=== PATIENT | female | born 2000 | race Caucasian/White ===

== ENCOUNTER 2025-02-04 10:06 | Outpatient (AMB) | payer MEDICAID, SELFPAY ==
[2025-02-04 10:25] VITALS: BP 114/73; PULSE 107; RESP 18; TEMP 36.2; O2SAT 98; BMI 49.1
--- NOTE | 2025-02-04 10:25 | OBCLNT_ITS ---
Vital Signs 02/04/25 10:25 Height 1.63 m Height Method Stated Weight 129.841 kg Weight Measurement Method Standing Scale BMI 49.1 BP 114/73 Blood Pressure Source Automatic Cuff Blood Pressure Location Left Upper Arm Position Sitting Respiration 18 Pulse 107 H Pulse Source Monitor Temp 97.2 F Temp Source Oral Pulse Oximetry (%) 98 Oxygen Delivery Method Room Air Allergies/Home Meds Allergies & Medications Allergies No Known Allergies Allergy (Verified 02/04/25 10:26) Medication Reconciliation No Known Home Medications 02/04/25 [History Confirmed 02/04/25] Intake Visit Data Collection New Patient or Established: Established Patient (seen at [facility] within 3 years) Reason for Visit:: OBC Seen by Clinical Staff ONLY (RN/MA): No Windows Server Support Technician Required: No Do You Feel Safe at Home: Yes Authorities Contacted: N/A PCP or OBGYN visit in last 3 months: Yes Hx Now: Yes Are you currently on any form of Control: No Pain Present Currently: No Pain Scale Used: Rodriguez-Butler/Numerical Pain scale:: 0 Smoking Status Smoking Status: Never smoker Immunizations Flu Vaccine in the Last 12 Months: No Flu Vaccine Exclusion Criteria: No Exclusion Criteria Questionnaires Covid-19 Vaccine Questionnaire Has patient been vacinated for Covid-19 Have you been vacinated for Covid-19: No PHQ-9 PHQ-2 Over the last 2 weeks, how often have you been bothered by any of the following problems? 1. Little interest or pleasure in doing things: not at all 2. Feeling down, depressed, or hopeless: not at all Total score: 0 PHQ-9 3. Trouble falling or staying asleep, or sleeping too much: Not at all 4. Feeling tired or having little energy: Not at all 5. Poor appetite or overeating: Not at all 6. Feeling bad about yourself - or that you are a failure or have let yourself or your family down: Not at all 7. Trouble concentrating on things, such as reading the newspaper or watching television: Not at all 8. Moving or speaking so slowly that other people could have noticed? - Or the opposite - being so fidgety or restless that you have been moving around a lot more than usual: not at all 9. Thoughts that you would be better off or of hurting yourself in some way: Not at all Total score: 0 If you checked off any problems, how difficult have these problems made it for you to do your work, take care of things at home, or get along with other people?: not difficult at all Source: Developed by Drs. Fernando Gr, Shelby Hernández, Hubert Linton and colleagues, with an educational more from [employer] ([employer]). Depression screen completed yes Social History Living Situation History Marital Status: Single Lives With: Family Housing: House Tobacco History Smoking Status: Never smoker Second Hand Smoke Exposure: No Domestic Abuse History Do You Feel Safe at Home: Yes OB Initial Visit OB Flowsheet OB Flowsheet Initial Weight: Not Recorded Date -?-?-?-?-?-?-?-?-?-?-?-?- EGA Weight BP Alb Glu CTX Pres Fundal ht FHR Mov Dilation Station Effacement Hx Notes Visit Note 02/04/25 -?-?-?-?-?-?-?-?-?-?-?-?- 27w 5d 129.841 kg 114/73 absent cephalic 28 14 8 active Menstrual History Menstrual reliability: definite Flow: normal Menstrual regularity: regular Monthly: Yes Age at menarche: 13 On control pills at conception: No OB History : 1 # of Living Children: 0 Infection History & Risk Evaluation History of STDs: none HIV risk evaluation: low risk Hepatitis B risk evaluation: low risk Patient or partner has history of Genital Herpes: No Varicella/chicken pox status: immunized Genetic Screening & History Genetic Screening/Teratology Counseling - Includes patient, baby's father, or anyone in either family with: 1. Patient's age 35 years or older as of estimated date of delivery: No 2. Thalassemia (Estonian, Surinamese, Mediterranean, or Background); MCV less than 80: No 3. Neural Tube Defect (Meningomyelocele, Spina Bifida, or Anencephaly): No 4. Congenital Heart Defect: No 5. Down Syndrome: No 6. Yosef-Sachs (Ashkenazi Sabianism, Cajun, [place]): No 7. Ritu Disease (Ashkenazi Sabianism): No 8. Familial Dysautonomia (Ashkenazi Sabianism): No 9. Sickle Cell Disease or Trait (): No 10. Hemophilia or other blood disorders: No 11. Muscular Dystrophy: No 12. Cystic Fibrosis: No 13. Orient's Chorea: No 14. Mental Retardation/Autism: Yes 15. Other inherited genetic or chromosomal disorder: No 16. Maternal Metabolic Disorder (EG,TYPE 1 Diabetes, PKU): Yes 17. Patient or baby's father had a child with defects not listed above: No 18. Recurrent loss or a stillbirth: No 19. Medications (including supplements, vitamins, herbs or otc drugs)/illicit/recreational drugs/alcohol since last menstrual period: No 20. Any other: No Infection History 1. Live with someone with TB or exposed to TB: No 2. Rash or viral illness since last menstrual period: No 3. Hepatitis B,C: No Other (see comments) Source: [employer] Office Procedures OBC Clinic LOC & Office Proc's Nursing/Assessment Patient Status: Initial/New Patient OB Clinic Nursing Assessment: Medication Reconciliation, Update PMH in EMR and Vital Signs OB Clinic Coordination of Care: Consent,records obtained, informed consent, Education Simp Pt/Fam, Lab and Imaging orders, Results/Orders obtained and Staff clarify orders Special Needs: Heart tones New Patient Charge New Patient Point Assignment: [id number] New Patient Point Charge: ASSISTANT OPERATIONS MANAGER Level 3 (1454-9360) Assessment & Plan Diagnosis / Problem List (1) : Status: Acute Qualifiers: Weeks of gestation: 27 weeks Qualified Code(s): Z3A.27 - 27 weeks gestation of Plan: 25 years at 27.5 weeks iup with h/o bipolar disorder and also being evaluated for autism diagnosed with ADHD , she is seeing a psychiatrist will review medications next visit (2) Asthma affecting in second trimester: Status: Acute (3) Mood disorder: Status: Acute Plan: seeing a psychiatrist and has been evaluated as having ADHD and also evaluated for autism / review meds next visit Plan RPR and CBC and One hour GTT S appropriate for Dates and follow up in 2 to 3 weeks Additional Plan Follow Up: 2 Weeks
== END 2025-02-04 11:01 | disposition home or self-care (01) ==
PROVIDERS: Supervising Provider Obstetrics & Gynecology; Visit Provider Obstetrics & Gynecology
DX: O09.892 Supervision of other high risk pregnancies, second trimester (principal); O99.512 Diseases of the respiratory system complicating pregnancy, second trimester; J45.909 Unspecified asthma, uncomplicated; O99.342 Other mental disorders complicating pregnancy, second trimester; F31.9 Bipolar disorder, unspecified; F90.9 Attention-deficit hyperactivity disorder, unspecified type; Z3A.27 27 weeks gestation of pregnancy
CPT/HCPCS: 99203; G0463

== ENCOUNTER 2025-02-13 00:28 | Observation (INO) | payer MEDICAID, SELFPAY ==
[2025-02-13 00:35] VITALS: BP 131/71; PULSE 93; RESP 16; RESP 98; TEMP 36.9; BMI 49.3
[2025-02-13 00:45] VITALS: BP 131/71; PULSE 93; PULSE 96; O2SAT 98
[2025-02-13 00:50] VITALS: PULSE 94; O2SAT 99
[2025-02-13 00:55] VITALS: PULSE 102; O2SAT 99
[2025-02-13 01:02] VITALS: BP 128/71; PULSE 87
[2025-02-13 01:17] VITALS: BP 121/71; PULSE 85
== END 2025-02-13 01:55 | disposition home or self-care (01) ==
PROVIDERS: Admitting Provider Obstetrics & Gynecology; Visit Provider Obstetrics & Gynecology
DX: O21.2 Late vomiting of pregnancy (principal); O99.891 Other specified diseases and conditions complicating pregnancy; M54.50 Low back pain, unspecified; O26.893 Other specified pregnancy related conditions, third trimester; R10.9 Unspecified abdominal pain; Z3A.29 29 weeks gestation of pregnancy
CPT/HCPCS: 59025; 59899

== ENCOUNTER 2025-02-13 12:31 | Emergency (ER) | payer MEDICAID, SELFPAY ==
[2025-02-13 12:32] VITALS: BMI 31.2
[2025-02-13 13:20] VITALS: BP 128/80; PULSE 90; RESP 20; TEMP 37; O2SAT 98
--- NOTE | 2025-02-13 13:24 | XR_ITS ---
Examination: Abdomen sonogram, Limited Date and time of exam: February 13, 2025, 1433 hours INDICATIONS: Generalized abdominal pain and vomiting this week Technique: Real-time saavedra scale transabdominal sonographic images of the upper abdomen obtained. Findings: Gallbladder sludge, tiny gallstones Gallbladder wall 0.3 cm Common bile duct 0.4 cm Pancreatic head 2.9 cm Liver 14.4 cm no liver lesions Normal hepatopetal portal venous flow Patent IVC IMPRESSION: Gallbladder sludge, suspicious for tiny gallstones, negative for cholecystitis
--- NOTE | 2025-02-13 13:24 | EKG_ITS ---
[facility] Test Date: 2025-02-13 Pat Name: DAVIDE GUPTA Department: Room: - Gender: Female Banking Analyst: : 2000 Requested By: Eros Thayer (RIP) Order Number: [id number] Reading MD: Eros Thayer (ELECTRONIC INTEGRATED SYSTEMS MECHANIC) Measurements Intervals [place] Rate: 96 P: 38 AR: 134 QRS: -3 QRSD: 79 T: 15 QT: 325 QTc: 411 Interpretive Statements SINUS RHYTHM MINIMAL VOLTAGE CRITERIA FOR LVH, CONSIDER NORMAL VARIANT [MEETS CRITERIA IN ONE OF: R(aVL), S(V1), R(V5), R(V5/V6)+S(V1)] No previous ECG available for comparison /store/S0/[id number]/ecg/[id number].pdf
--- NOTE | 2025-02-13 13:24 | PD.EDRME ---
Rapid Medical Screening Exam RME Arrival date/time: 02/13/25 12:31 25-year-old female presents to the emergency department today for complaints of upper abdominal pain and chest pain ongoing since yesterday patient is approximate 29 weeks patient was cleared by OB Chief Complaint: Abdominal Pain Time Seen by Provider: 02/13/25 12:50 Vital signs: Vital Signs Temperature 98.6 F 02/13/25 13:20 Pulse Rate 90 02/13/25 13:20 Respiratory Rate 20 02/13/25 13:20 Blood Pressure 128/80 02/13/25 13:20 Pulse Oximetry (%) 98 02/13/25 13:20 Oxygen Delivery Method Room Air 02/13/25 13:20 Vital signs reviewed by provider: Yes Exam: On exam patient well-appearing does not appear ill or toxic and in no acute distress Clinical Impression: Lab work and imaging obtained
[2025-02-13 13:47] LABS: Basophils # (Auto) 0.0 Thou/mm3 (0.0-0.2); Basophils % (Auto) 0 % (0-2.5); Eosinophils # (Auto) 0.2 Thou/mm3 (0.0-0.5); Eosinophils % (Auto) 2 % (0-10); Hematocrit 33.8 % (36.0-46.0); Hemoglobin 11.6 g/dL (12.0-16.0); Immature Granulocytes Auto 0.11 Thou/mm3 (0.00-0.00); Lymphocytes # (Auto) 1.9 Thou/mm3 (1.0-4.8); Lymphocytes % (Auto) 16 % (10-50); Mean Corpuscular HGB Conc 34.3 g/dl (31.0-37.0); Mean Corpuscular Hemoglobin 30.3 pg (25.0-35.0); Mean Corpuscular Volume 88 fL (80-100); Monocytes # (Auto) 0.7 Thou/mm3 (0.0-0.8); Monocytes % (Auto) 6 % (0-12); Neutrophils # (Auto) 8.5 Thou/mm3 (1.8-7.7); Neutrophils % (Auto) 74 % (37-80); Nucleated Red Blood Cell # 0.00 Thou/mm3 (0.00-0.00); Nucleated Red Blood Cell % 0 /100 WBC (0); Platelet Count 258 Thou/mm3 (140-440); RDW Standard Deviation 42.0 fL (36.4-46.3); Red Blood Count 3.83 Miln/mm3 (4.00-5.20); White Blood Count 11.5 Thou/mm3 (3.6-11.0)
[2025-02-13 14:06] LABS: Alanine Aminotransferase 8 U/L (10-49); Albumin, Serum 4.0 gm/dL (3.5-5.0); Albumin/Globulin Ratio 1.4 (1.2-2.2); Alkaline Phosphatase 90 U/L (46-116); Anion Gap 10 (7-16); Aspartate Amino Transferase 17 U/L (0-34); BUN/Creatinine Ratio 8 Ratio (12-20); Bilirubin,Total 0.2 mg/dL (0.3-1.2); Blood Urea Nitrogen 5 mg/dL (9-23); Calcium 9.4 mg/dL (8.3-10.6); Calcium (Corrected) 9.4 mg/dL (8.5-10.1); Carbon Dioxide 24.3 mMol/L (20.0-31.0); Chloride 107 mMol/L (98-107); Creatinine (Component) 0.6 mg/dL (0.6-1.3); Estimated Creatinine Clearance 149.0 mL/min (>60); Globulin 2.8 gm/dL (2.3-3.5); Glucose 94 mg/dL (74-106); Lipase 23 U/L (12-53); Osmolality,Calculated 278 (275-295); Potassium 4.2 mMol/L (3.4-5.1); Sodium 141 mMol/L (136-145); Total Protein 6.8 gm/dL (5.7-8.2); Troponin I < 0.002 ng/mL (0.0-0.045); eGFR > 60 See Note
[2025-02-13 14:23] LABS: Collection Type, Urine Clean Catch
[2025-02-13 14:32] LABS: Bacteria,Urine Rare; Bilirubin,Urine Negative (Negative); Blood,Urine Negative (Negative); Clarity,Urine Turbid (Clear/Hazy); Color,Urine Yellow (Lt Yel-Yel); Culture Indicated,Urine Not Indicated; Glucose, Urine Negative (Negative); Ketones,Urine Negative (Negative); Leukocyte Esterase,Urine Negative (Negative); Nitrite,Urine Negative (Negative); PH,Urine 7.0 (5.0-7.0); Protein,Urine 1+ (Neg - Trace); RBC,Urine 3 /hpf (0-3); Specific Gravity,Urine 1.026 (1.001-1.035); Squamous Epithelial Cell,Urine 5 /hpf (0-5); Urobilinogen,Urine Negative mg/dL (0.0-1.0); WBC,Urine 3 /hpf (0-5)
--- NOTE | 2025-02-13 16:05 | PD.EDABDPN ---
ED Abdominal Pain RME/HPI General Chief Complaint: Abdominal Pain Stated complaint: CLEARED BY OB TO COME TO ED FOR MID-ABD PAIN Time seen by provider: 02/13/25 12:50 Arrival date/time: 02/13/25 12:31 RME / HPI RME / HPI narrative: 02/13/25 12:31 25-year-old female presents to the emergency department today for complaints of upper abdominal pain and chest pain ongoing since yesterday patient is approximate 29 weeks patient was cleared by OB DR. FAM MAIN ED EVALUATION, 1615h: 25 year old female who is currently 29 weeks gestational age, , presents to the ED for evaluation of abdominal pain today. Patient states the pain woke her from sleep last night. Described as a tightness sharp sensation the the mid upper abdomen, rating as moderate. Accompanied by pain to her upper back, chest, feeling slightly short of breath, nausea, and two episodes of vomiting. States the pain lasted about 30 minutes and had resolved on its own, no medication taken at home. Denies any history of similar pain. Denies fevers, cough, change in bowel habits, urinary symptoms. Exam: On exam patient well-appearing does not appear ill or toxic and in no acute distress Impression: Lab work and imaging obtained Related Data Home Medications ?Medication ?Instructions ?Recorded ?Confirmed vits no.10-ferrous 1 tab PO QDAY 02/13/25 02/13/25 fumarate 65 mg iron-folic acid 1 mg tablet Allergies Allergy/AdvReac Type Severity Reaction Status Date / Time No Known Allergies Allergy Verified 02/13/25 12:34 Review of Systems Review of Systems Systems Reviewed: All systems reviewed, normal except as documented Past Medical History Surgical History SURGICAL: Negative Section Social History SMOKING STATUS: Never smoker SECOND HAND EXPOSURE: No ED Exam Narrative Physical exam: Constitutional: Awake, alert, nontoxic, no acute distress HEENT: Normocephalic, atraumatic, extraocular movements intact. Neck: Supple CV: Regular rate and rhythm, no murmurs/rubs/gallops Lungs: Clear to auscultation BL, no respiratory distress. Abd: Soft, mild discomfort to epigastric region, gravid abdomen, no HSM noted to palpation Extremities: No deformities, no edema noted Neuro: AAOx3, CN 2-12 GIBL Skin: Warm, dry, intact Course Quality Measures none Orders Category Date Time Status EKG (ED ONLY) *Do not use* NOW Care 02/13/25 13:24 Completed EKG (ED Only) Stat Exams 02/13/25 13:24 Draft US gall bladder Stat Exams 02/13/25 13:24 Completed CBC Stat Lab 02/13/25 13:40 Completed Comprehensive Metabolic Panel Stat Lab 02/13/25 13:40 Completed Lipase Stat Lab 02/13/25 13:40 Completed Troponin I Stat Lab 02/13/25 13:40 Completed UA, C/S IF [Urinalysis, C/S if Indicated] Stat Lab 02/13/25 14:15 Completed Vital Signs Vital signs: Vital Signs Temperature 98.6 F 02/13/25 13:20 Pulse Rate 90 02/13/25 13:20 Respiratory Rate 20 02/13/25 13:20 Blood Pressure 128/80 02/13/25 13:20 Pulse Oximetry (%) 98 02/13/25 13:20 Oxygen Delivery Method Room Air 02/13/25 13:20 Pulse ox is 98% on room air which is adequate. Abdominal Pain MDM MDM Narrative MDM Narrative:: Laura Bowers am scribing for and in the presence of Dr. Fam. Patient data External records reviewed:: [facility] previous records Clinical information provided by:: patient Social determinants that could affect healthcare access:: none Patient has the following chronic illnesses:: No chronic medical hx reported currently How is presenting disease/condition affected by chronic disease/condition?: uneffected by Evaluation data The following diagnostics were reviewed and interpreted by me:: lab results, radiology exam(s) and EKG tracing(s) (EKG @ 13:26h, interpreted by me, normal sinus rhythm, rate 96, no STEMI. ) Lab and/or radiology exams considered but not ordered:: None Interpretation Summary: Ordering Physician: Flaca (RIP)Eros NP Date of Service: 02/13/25 Procedure(s): US gall bladder Accession Number(s): [id number] cc: Ct Butler PA-C; Eros Thayer NP, NP; Jose Delaney MD~ Examination: Abdomen sonogram, Limited Date and time of exam: February 13, 2025, 1433 hours INDICATIONS: Generalized abdominal pain and vomiting this week Technique: Real-time saavedra scale transabdominal sonographic images of the upper abdomen obtained. Findings: Gallbladder sludge, tiny gallstones Gallbladder wall 0.3 cm Common bile duct 0.4 cm Pancreatic head 2.9 cm Liver 14.4 cm no liver lesions Normal hepatopetal portal venous flow Patent IVC IMPRESSION: Gallbladder sludge, suspicious for tiny gallstones, negative for cholecystitis Dictated By: Jose Delaney MD Signed By: <Electronically signed by Jose Delaney MD in OV> 02/13/25 1511 Medications / Prescriptions Medications or Prescriptions considered but not ordered:: None Medication administrations:: None Consultations Consultation(s) initiated? (list below): No Diagnosis Differential diagnosis abdominal pain: abdominal pain, calculus of kidney and other (cholelithiasis) Most likely diagnosis given after review of the tests above:: Upper abdominal pain Admission Indicated Admission indicated?: not indicated Admission Request Was there a request for admission?: No Disposition Plan Disposition Plan: Discharge Discharge Attestation Discharge Attestation: The patient and all family members were given an opportunity to ask questions and understood the discharge instructions. Discharge instructions specifically effects, indications for sooner follow up or return to the emergency department, and the expected course of current diagnosis. Patient condition: Stable Discharge Plan Plan Patient Disposition: HOME (Self Care) Patient condition on transfer: Stable Prescriptions/Referrals Prescriptions/Med Rec: No Action vit 10-iron fum-folic 65-1 mg tablet 1 tab PO QDAY Referrals: Ct Butler PA-C [Primary Care Provider] - In 1 week Problem List Clinical Impression: Upper abdominal pain, Patient/Caregiver Discharge Instructions Education Materials: Adapting to Second ..., ED Diet, Low Fat, ED Abd Pain Preg Gallstones Additional Instructions: May take Tylenol 1 g every 6 hours as needed for pain. Make sure that you are eating a low-fat diet for now. Some general health principles that can help you are the NEW START principles: Nutrition (eat a plant-based diet, avoiding meats in general, avoiding highly processed foods) Exercise (Daily exercise/walks as tolerated) Water (Drink adequate fresh water to maintain hydration, concentrating on water rather than on soda, coffee, tea, juice, etc for hydration) [place] (Spend time - 15-20 minutes or so with skin exposed in the document photographer and late evening sun for Vitamin D health benefits) [place] (Avoid alcohol, illicit drugs, caffeinated beverages, smoking, etc) Air (Deep breathing exercises in the early mornings in fresh air) Rest (Adequate rest at night, going to bed a few hours before midnight and avoiding all screens/television/loud music in the time right before going to bed, also avoiding heavy meals just prior to going to bed) Trust in God (Spend time daily in Bible study and prayer - health benefits in contemplation of God's true character) Additional resources that can benefit: www.[employer]ish [place].[email or web address], look under resources and seminars. Another good website is www.lifeMarginize.org Print Language: Divehi Stand Alone Forms: Martha Award Info., Patient Portal Info Letter
== END 2025-02-13 17:09 | disposition home or self-care (01) ==
PROVIDERS: Nurse Practitioner Primary Care; Emergency Provider Family Medicine; PCP Physician Assistant Medical
DX: O26.893 Other specified pregnancy related conditions, third trimester (principal); R10.10 Upper abdominal pain, unspecified; Z3A.29 29 weeks gestation of pregnancy
CPT/HCPCS: 36415; 76705; 80053; 81001; 83690; 84484; 85025; 93005; 99283

== ENCOUNTER 2025-03-05 15:06 | Outpatient (AMB) | payer MEDICAID, SELFPAY ==
[2025-03-05 15:18] VITALS: BP 121/81; PULSE 81; RESP 18; TEMP 36.2; O2SAT 98; BMI 49.6
--- NOTE | 2025-03-05 15:18 | OBCLNT_ITS ---
Vital Signs 03/05/25 15:18 Height 1.63 m Height Method Stated Weight 131.995 kg Weight Measurement Method Standing Scale BMI 49.6 BP 121/81 Blood Pressure Source Automatic Cuff Blood Pressure Location Left Upper Arm Position Sitting Respiration 18 Pulse 81 Pulse Source Monitor Temp 97.2 F Temp Source Oral Pulse Oximetry (%) 98 Oxygen Delivery Method Room Air Allergies/Home Meds Allergies & Medications Allergies No Known Allergies Allergy (Verified 03/05/25 15:19) Medication Reconciliation vits no.10-ferrous fumarate 65 mg iron-folic acid 1 mg tablet 1 tab PO QDAY 02/13/25 [History Confirmed 03/05/25] Immunizations Immunizations Flu Vaccine in the Last 12 Months: No Flu Vaccine Exclusion Criteria: No Exclusion Criteria Care OB Visit Log OB Flowsheet Initial Weight: Not Recorded Date -?-?-?-?-?-?-?-?-?-?-?-?- EGA Weight BP Alb Glu CTX Pres Fundal ht FHR Mov Dilation Station Effacement Hx Notes Visit Note 02/04/25 -?-?-?-?-?-?-?-?-?-?-?-?- 27w 5d 129.841 kg 114/73 absent cephalic 28 14 8 active 03/05/25 -?-?-?-?-?-?-?-?-?-?-?-?- 31w 6d 131.995 kg 121/81 absent cephalic 32 14 4 active SANJU Calculator Estimated Delivery Date Method Current WG Current Estimate 05/01/25 Ultrasound #1 31w 6d Notes Visit Date: 03/05/25 Last Updated by: Tita Rosario MD /One hour GTT /CBC and RPR are all Normal on 02/12/2025/ She has depression and ADHD and psychiatrist recommends taking Wellbutrin 75 mgm po q day /She can take the medication if benefit is more than risk . She will take the Flu vaccine anatomy scan was dome in second trimester / kick count explained / R/B and options for flu vaccine explained . Follow up in 2 weeks Visit Date: 02/04/25 Last Updated by: Tita Rosario MD EDC is 05/01/2025 by a 13 week US done 10/24/2024 obesity Patient has h/o bipolar and autism herself and asthma and is on albuterol labs done 10/04/2024 and she is A positive HbSAg negative HIV negative RPR non reactive Gc and CT negative Rubella immune NIPT female gender/ genetic screen negative Patient on disability due h/o hyperemesis this Never had a Pap smear she will see the psychiatrist tomorrow and is also getting evaluated for ADHD Plan one hour GTT and CBC and RPR now and follow up in 2 to 3 weeks dating confirmed by US on 10/24/2024 at 13 weeks Had an anatomy scan as well on 11/21/2024 and at 17 weeks /conforming to EDC of 04/25/2024 Final EDC is 05/01/2025 Office Procedures OBC Clinic LOC & Office Proc's Nursing/Assessment Patient Status: Established Patient OB Clinic Nursing Assessment: Medication Reconciliation, Update PMH in EMR and Vital Signs OB Clinic Coordination of Care: Consent,records obtained, informed consent, Education Simp Pt/Fam, Lab and Imaging orders, Results/Orders obtained and Staff clarify orders Special Needs: Heart tones Established Patient Charge Established Patient Point Assignment: 110 Established Patient Point Charge: EP Level 3 (80-115) Injection/Vaccine Admin SQ Im Injection: Yes Immunizations flu vac ts 2024-(6mos up)-PF 45 mcg(15mcg x3)/0.5 mL IM syringe Performing Provider: Tita Rosario MD Performing Location: [facility] Administered by: Priyanka Vázquez MA on 03/05/25 16:02 Dose Route Admin Location Dispensed Lot Number Expiration Date Pack age [facility] Weigher Operator 0.5 mL IM Left Deltoid 0.5 mL [id number] 10/01/25 92672-613-41 [id number] [employer] VIS Given Date VIS Provided VIS Publication Date 03/05/25 Single Vaccine 24 Eligibility Eligibility Date Funding Source Public Non-[facility] Assessment & Plan Diagnosis / Problem List (1) Mood disorder: Status: Acute (2) : Status: Acute Qualifiers: Weeks of gestation: 27 weeks Qualified Code(s): Z3A.27 - 27 weeks gestation of (3) Obesity affecting , antepartum: Status: Acute Additional Plan Flu vaccine today / Mood disorder including ADHD / seeing a psychiatrist / One hour GTT is normal/ follow up in 2 weeks
== END 2025-03-05 15:57 | disposition home or self-care (01) ==
PROVIDERS: Supervising Provider Obstetrics & Gynecology; Visit Provider Obstetrics & Gynecology
DX: O09.893 Supervision of other high risk pregnancies, third trimester (principal); F31.9 Bipolar disorder, unspecified; O99.343 Other mental disorders complicating pregnancy, third trimester; F84.0 Autistic disorder; F90.9 Attention-deficit hyperactivity disorder, unspecified type; O99.513 Diseases of the respiratory system complicating pregnancy, third trimester; J45.909 Unspecified asthma, uncomplicated; O99.213 Obesity complicating pregnancy, third trimester; Z3A.31 31 weeks gestation of pregnancy; Z23 Encounter for immunization
CPT/HCPCS: 90471; 90686; 96372; 99213; G0463; J9060

== ENCOUNTER 2025-04-03 10:02 | Outpatient (AMB) | payer MEDICAID, SELFPAY ==
--- NOTE | 2025-04-03 10:21 | OBCLNT_ITS ---
Vital Signs 04/03/25 10:23 Height 1.63 m Height Method Stated Weight Measurement Method Standing Scale BP 119/83 Blood Pressure Source Automatic Cuff Blood Pressure Location Right Upper Arm Position Sitting Respiration 16 Pulse 92 Pulse Source Monitor Temp 97.4 F Temp Source Temporal Artery Scan Pulse Oximetry (%) 97 Oxygen Delivery Method Room Air Allergies/Home Meds Allergies & Medications Allergies No Known Allergies Allergy (Verified 04/03/25 10:25) Immunizations Immunizations Flu Vaccine in the Last 12 Months: Yes Date of most recent flu vaccination: 03/05/25 Flu Vaccine Exclusion Criteria: Already Received Care OB Visit Log OB Flowsheet Initial Weight: Not Recorded Date -?-?-?-?-?-?-?-?-?-?-?-?- EGA Weight BP Alb Glu CTX Pres Fundal ht FHR Mov Dilation Station Effacement Hx Notes Visit Note 02/04/25 -?-?-?-?-?-?-?-?-?-?-?-?- 27w 5d 129.841 kg 114/73 absent cephalic 28 14 8 active 03/05/25 -?-?-?-?-?-?-?--?-?-?-?-?- 31w 6d 131.995 kg 121/81 absent cephalic 32 14 4 active 04/03/25 -?-?-?-?-?-?-?-?-?-?-?-?- 36w 0d 119/83 absent cephalic 36 146 activ e 37 years old and at 31.4 weeks / c/o rash / she is seeing mental health / not sure about signing BTL consent yet / offered and refused / US done 03/15/[address] Kaden BORJA and Low lying placenta and has follow up scheduled for it/ growth in 57th percentile she has a rash on her back and abdomen a nd will call in a steroid/ antifungal topical cream / follow up in 2 weeks SANJU Calculator Estimated Delivery Date Method Current WG Current Estimate 05/01/25 Ultrasound #1 36w 5d Notes Visit Date: 04/03/25 Last Updated by: Tita Rosario MD /One hour GTT /CBC and RPR are all Normal on 02/12/2025/ She has depression and ADHD and psychiatrist recommends taking Wellbutrin 75 mgm po q day / here for Follow up / Patient is not taking any antidepressants / she is 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 She will take the Flu vaccine anatomy scan was dome in second trimester / kick count explained / R/B and options for flu vaccine explained . Follow up in 2 weeks Visit Date: 02/04/25 Last Updated by: Tita Rosario MD EDC is 05/01/2025 by a 13 week US done 10/24/2024 obesity Patient has h/o bipolar and autism herself and asthma and is on albuterol labs done 10/04/2024 and she is A positive HbSAg negative HIV negative RPR non reactive Gc and CT negative Rubella immune NIPT female gender/ genetic screen negative Patient on disability due h/o hyperemesis this Never had a Pap smear she will see the psychiatrist tomorrow and is also getting evaluated for ADHD Plan one hour GTT and CBC and RPR now and follow up in 2 to 3 weeks dating confirmed by US on 10/24/2024 at 13 weeks Had an anatomy scan as well on 11/21/2024 and at 17 weeks /conforming to EDC of 04/25/2024 Final EDC is 05/01/2025 Office Procedures OBC Clinic LOC & Office Proc's Nursing/Assessment Patient Status: Established Patient OB Clinic Nursing Assessment: Medication Reconciliation, Update PMH in EMR and Vital Signs OB Clinic Coordination of Care: Complex Care and Chronic Disease 1-5, Education Complex Pt/Fam, Consent,records obtained, informed consent, 1 Ins Authorization, Lab and Imaging orders, Results/Orders obtained and Staff clarify orders Special Needs: Heart tones Miscellaneous Interventions: Culture Specimen Collection Established Patient Charge Established Patient Point Assignment: 170 Established Patient Point Charge: EP Level 5 (160-above) Injection/Vaccine Admin Admin 1st Vaccine: Yes Immunizations diphth,pertus(acell),tetanus 2.5 Lf unit-8 mcg-5 Lf/0.5mL IM syringe Performing Provider: Tita Rosario MD Performing Location: [facility] Administered by: Shirley Sanchez MA on 04/03/25 10:56 Dose Route Admin Location Dispensed Lot Number Expiration Date Pack age [place] NDC Mining Teacher 0.5 mL IM Left Deltoid 0.5 mL [id number] 09/21/27 89200-676-12 [id number] [employer] VIS Given Date VIS Provided VIS Publication Date 04/03/25 Single Vaccine 24 Eligibility Eligibility Date Funding Source Public Non-[facility] Assessment & Plan Diagnosis / Problem List (1) Obesity affecting , antepartum: Status: Acute Qualifiers: Obesity type affecting : unspecified obesity Qualified Code(s): O99.210 - Obesity complicating , unspecified trimester (2) Mood disorder: Status: Acute Additional Assessment /One hour GTT /CBC and RPR are all Normal on 02/12/2025/ She has depression and ADHD and psychiatrist recommends taking Wellbutrin 75 mgm po q day / here for Follow up / Patient is not taking any antidepressants / she is here with her Repair Service Clerk / she has an US scheduled with [facility] on Apr 222025/ GBS done today / kick counts and labor precautions / T dap today / patient is 36 weeks today Additional Plan Follow Up: 1 Week
[2025-04-03 10:23] VITALS: BP 119/83; PULSE 92; RESP 16; TEMP 36.3; O2SAT 97
--- NOTE | 2025-04-03 10:23 | OBCLNT_ITS ---
Vital Signs 04/03/25 10:23 Height 1.63 m Height Method Stated Weight Measurement Method Standing Scale BP 119/83 Blood Pressure Source Automatic Cuff Blood Pressure Location Right Upper Arm Position Sitting Respiration 16 Pulse 92 Pulse Source Monitor Temp 97.4 F Temp Source Temporal Artery Scan Pulse Oximetry (%) 97 Oxygen Delivery Method Room Air Allergies/Home Meds Allergies & Medications Allergies No Known Allergies Allergy (Verified 04/03/25 10:25) Immunizations Immunizations Flu Vaccine in the Last 12 Months: No Flu Vaccine Exclusion Criteria: Already Received Care OB Visit Log OB Flowsheet Initial Weight: Not Recorded Date -?-?-?-?-?-?-?-?-?-?-?-?- EGA Weight BP Alb Glu CTX Pres Fundal ht FHR Mov Dilation Station Effacement Hx Notes Visit Note 02/04/25 -?-?-?-?-?-?-?-?-?-?-?-?- 27w 5d 129.841 kg 114/73 absent cephalic 28 14 8 active 03/05/25 -?-?-?-?-?-?-?-?-?-?-?-?- 31w 6d 131.995 kg 121/81 absent cephalic 32 14 4 active 04/03/25 -?-?-?-?-?-?-?-?-?-?-?-?- 36w 0d 119/83 absent cephalic 36 146 activ e 37 years old and at 31.4 weeks / c/o rash / she is seeing mental health / not sure about signing BTL consent yet / offered and refused / US done 03/15/[address] Kaden BORJA and Low lying placenta and has follow up scheduled for it/ growth in 57th percentile she has a rash on her back and abdomen a nd will call in a steroid/ antifungal topical cream / follow up in 2 weeks SANJU Calculator Estimated Delivery Date Method Current WG Current Estimate 05/01/25 Ultrasound #1 36w 0d Notes Visit Date: 04/03/25 Last Updated by: Tita Rosario MD /One hour GTT /CBC and RPR are all Normal on 02/12/2025/ She has depression and ADHD and psychiatrist recommends taking Wellbutrin 75 mgm po q day / here for Follow up / Patient is not taking any antidepressants / 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 She will take the Flu vaccine anatomy scan was dome in second trimester / kick count explained / R/B and options for flu vaccine explained . Follow up in 2 weeks Visit Date: 02/04/25 Last Updated by: Tita Rosario MD EDC is 05/01/2025 by a 13 week US done 10/24/2024 obesity Patient has h/o bipolar and autism herself and asthma and is on albuterol labs done 10/04/2024 and she is A positive HbSAg negative HIV negative RPR non reactive Gc and CT negative Rubella immune NIPT female gender/ genetic screen negative Patient on disability due h/o hyperemesis this Never had a Pap smear she will see the psychiatrist tomorrow and is also getting evaluated for ADHD Plan one hour GTT and CBC and RPR now and follow up in 2 to 3 weeks dating confirmed by US on 10/24/2024 at 13 weeks Had an anatomy scan as well on 11/21/2024 and at 17 weeks /conforming to EDC of 04/25/2024 Final EDC is 05/01/2025 Office Procedures OBC Clinic LOC & Office Proc's Nursing/Assessment Patient Status: Established Patient OB Clinic Nursing Assessment: Medication Reconciliation, Update PMH in EMR and Vital Signs OB Clinic Coordination of Care: Complex Care and Chronic Disease 1-5, Education Complex Pt/Fam, Consent,records obtained, informed consent, 1 Ins Authorization, Lab and Imaging orders, Results/Orders obtained and Staff clarify orders Special Needs: Heart tones Miscellaneous Interventions: Culture Specimen Collection Established Patient Charge Established Patient Point Assignment: 170 Established Patient Point Charge: EP Level 5 (160-above) Injection/Vaccine Admin Admin 1st Vaccine: Yes Immunizations diphth,pertus(acell),tetanus 2.5 Lf unit-8 mcg-5 Lf/0.5mL IM syringe Performing Provider: Tita Rosario MD Performing Location: [facility] Administered by: Shirley Sanchez MA on 04/03/25 10:56 Dose Route Admin Location Dispensed Lot Number Expiration Date Pack age [place] NDC Cardiopulmonary Technologist 0.5 mL IM Left Deltoid 0.5 mL [id number] 09/21/27 [id number] [id number] [employer] VIS Given Date VIS Provided VIS Publication Date 04/03/25 Single Vaccine 24 Eligibility Eligibility Date Funding Source Public Non-[facility] Assessment & Plan Diagnosis / Problem List (1) Obesity affecting , antepartum: Status: Acute Qualifiers: Obesity type affecting : unspecified obesity Qualified Code(s): O99.210 - Obesity complicating , unspecified trimester (2) Mood disorder: Status: Acute (3) : Status: Acute Qualifiers: Weeks of gestation: 27 weeks Qualified Code(s): Z3A.27 - 27 weeks gestation of Additional Plan /One hour GTT /CBC and RPR are all Normal on 02/12/2025/ She has depression and ADHD and psychiatrist recommends taking Wellbutrin 75 mgm po q day / here for Follow up / Patient is not taking any antidepressants / she is 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
== END 2025-04-03 10:42 | disposition home or self-care (01) ==
LOC: HODSOBC 10:02
PROVIDERS: Supervising Provider Obstetrics & Gynecology; Visit Provider Obstetrics & Gynecology
DX: O09.893 Supervision of other high risk pregnancies, third trimester (principal); O99.213 Obesity complicating pregnancy, third trimester; O99.343 Other mental disorders complicating pregnancy, third trimester; F32.A Depression, unspecified; F90.9 Attention-deficit hyperactivity disorder, unspecified type; O99.891 Other specified diseases and conditions complicating pregnancy; R21 Rash and other nonspecific skin eruption; O44.43 Low lying placenta NOS or without hemorrhage, third trimester; O09.43 Supervision of pregnancy with grand multiparity, third trimester; Z3A.36 36 weeks gestation of pregnancy; Z23 Encounter for immunization
CPT/HCPCS: 90471; 90715; 99214; 99215; G0463